=== PATIENT | male | born 2000 | race Caucasian/White ===

== ENCOUNTER 2021-02-12 11:15 | Inpatient (IN) | payer BC, OTHER ==
[2021-02-12] MEDS ORDERED: SODIUM CHLORIDE 0.9% 500 ML 500 ML IV STA (11:32)
[2021-02-12] MEDS ORDERED: ONDANSETRON 4 MG/2 ML VIAL IVP STA (11:32)
[2021-02-12] MEDS ORDERED: SODIUM CHLORIDE 0.9% 1,000 ML IV STA ×2 (11:32)
[2021-02-12 12:01] LABS: ALT 41 U/L (4-49); AST 32 U/L (17-59); African American GFR (CKD) >90 (>60 ml/min/1.73 sqM); Albumin 4.4 g/dL (3.5-5.0); Alkaline Phosphatase 88 U/L (38-126); Anion Gap 11 mmol/L; Blood Urea Nitrogen 16 mg/dL (9-20); Calcium 9.9 mg/dL (8.4-10.2); Carbon Dioxide 23 mmol/L (22-30); Chloride 100 mmol/L (98-107); Glucose 110 mg/dL (74-99); Lipase 34 U/L (23-300); Non-African American GFR(CKD) >90 (>60 ml/min/1.73 sqM); Potassium 4.2 mmol/L (3.5-5.1); Sodium 134 mmol/L (137-145); Total Protein 7.1 g/dL (6.3-8.2)
--- NOTE | 2021-02-12 12:15 | ED ---
General Adult HPI - General Chief complaint: Nausea/Vomiting/Diarrhea Stated complaint: NVD Time Seen by Provider: 02/12/21 11:25 Source: patient, RN notes reviewed Mode of arrival: ambulatory Limitations: no limitations - History of Present Illness Initial comments: This a 20-year-old male presents emergency Department with chief complaint of abdominal pain, nausea vomiting diarrhea. Patient's states he has had issues with C. diff over the last 4-5 months. Patient was treated by [facility]. Patient states he has increased symptoms last 3 days with several episodes of diarrhea he states it's watery, slightly red tinged. Patient was treated in the past with vancomycin has taken a few doses of Flagyl. He states he feels weak, dehydrated. Patient mother has discussed the case with GI. He does not have a local follow-up. - Related Data Home Medications Medication Instructions Recorded Confirmed No Known Home Medications 02/12/21 02/12/21 Allergies Allergy/AdvReac Type Severity Reaction Status Date / Time No Known Allergies Allergy Verified 02/12/21 12:23 Review of Systems ROS Statement: Those systems with pertinent positive or pertinent negative responses have been documented in the HPI. ROS Other: All systems not noted in ROS Statement are negative. Past Medical History Additional Past Medical History / Comment(s): c-diff History of Any Multi-Drug Resistant Organisms: None Reported Past Surgical History: Appendectomy Past Psychological History: No Psychological Hx Reported Smoking Status: Current every day smoker Past Alcohol Use History: None Reported Past Drug Use History: None Reported General Exam Limitations: no limitations General appearance: alert, in no apparent distress Head exam: Present: atraumatic, normocephalic, normal inspection Neck exam: Present: normal inspection. Absent: tenderness, meningismus, lymphadenopathy Respiratory exam: Present: normal lung sounds bilaterally. Absent: respiratory distress, wheezes, rales, rhonchi, stridor Cardiovascular Exam: Present: normal rhythm, tachycardia, normal heart sounds. Absent: systolic murmur, diastolic murmur, rubs, gallop, clicks GI/Abdominal exam: Present: soft, tenderness, normal bowel sounds. Absent: distended, guarding, rebound, rigid Back exam: Absent: CVA tenderness (R), CVA tenderness (L) Neurological exam: Present: alert Skin exam: Present: warm, dry, intact, normal color. Absent: rash Course Vital Signs 02/12/21 11:19 Temperature 98.5 F Pulse Rate 115 H Respiratory 18 Rate Blood Pressure 106/64 O2 Sat by Pulse 100 Oximetry Medical Decision Making - Medical Decision Making 20-year-old male presented for recurrent C. diff. Patient was given dehydrated, having moderate left-sided abdominal pain. Patient be admitted for consult infectious disease, GI. Case discussed with Dr. Parker. - Lab Data Result diagrams: 02/12/21 11:38 02/12/21 11:38 Lab Results 02/12/21 02/12/21 Range/Units 11:38 11:38 WBC 6.1 (3.8-10.6) k/uL RBC 5.11 (4.30-5.90) m/uL Hgb 15.6 (13.0-17.5) gm/dL Hct 45.9 (39.0-53.0) % MCV 89.8 (80.0-100.0) fL MCH 30.5 (25.0-35.0) pg MCHC 34.0 (31.0-37.0) g/dL RDW 12.3 (11.5-15.5) % Plt Count 200 (150-450) k/uL MPV 7.4 Sodium 134 L (137-145) mmol/L Potassium 4.2 (3.5-5.1) mmol/L Chloride 100 (98-107) mmol/L Carbon Dioxide 23 (22-30) mmol/L Anion Gap 11 mmol/L BUN 16 (9-20) mg/dL Creatinine 1.06 (0.66-1.25) mg/dL Est GFR (CKD-EPI)AfAm >90 (>60 ml/min/1.73 sqM) Est GFR (CKD-EPI)NonAf >90 (>60 ml/min/1.73 sqM) Glucose 110 H (74-99) mg/dL Calcium 9.9 (8.4-10.2) mg/dL Total Bilirubin 1.0 (0.2-1.3) mg/dL AST 32 (17-59) U/L ALT 41 (4-49) U/L Alkaline Phosphatase 88 (38-126) U/L Total Protein 7.1 (6.3-8.2) g/dL Albumin 4.4 (3.5-5.0) g/dL Lipase 34 (23-300) U/L Disposition Clinical Impression: Recurrent Clostridium difficile diarrhea, Dehydration, Abdominal pain Disposition: ADMITTED IP TO THIS HOSP Condition: Fair Referrals: RYAN JEREZ MD [Primary Care Provider] - 1-2 days
[2021-02-12 12:25] LABS: HCT 45.9 % (39.0-53.0); HGB 15.6 gm/dL (13.0-17.5); MCH 30.5 pg (25.0-35.0); MCV 89.8 fL (80.0-100.0); Mean Platelet Volume 7.4; Platelet Count 200 k/uL (150-450); RBC 5.11 m/uL (4.30-5.90); RDW 12.3 % (11.5-15.5); WBC 6.1 k/uL (3.8-10.6)
[2021-02-12 12:43] LABS: Band Neutrophils % 24 %; Lymphocytes # (M) 1.22 k/uL (1.0-4.8); Monocytes # (M) 0.73 k/uL (0-1.0); Neutrophils % (M) 45 %; Nucleated Red Blood Cells 0 /100 WBC (0-0); Total Cells Counted 200
[2021-02-12] MEDS ORDERED: METOCLOPRAMIDE 5 MG/ML 2 ML VIAL IVP STA (12:43)
[2021-02-12] MEDS ORDERED: HYDROmorphone 0.5 MG/0.5 ML SYRINGE IVP STA (12:43)
[2021-02-12 12:44] LABS: Anisocytosis (M) Present; Toxic Granulation Present
[2021-02-12 12:45] LABS: Poikilocytosis (M) Present
[2021-02-12] MEDS ORDERED: NALOXONE 0.4 MG/ML 1 ML VIAL IV PRN (12:46)
[2021-02-12] MEDS ORDERED: HYDROmorphone 0.5 MG/0.5 ML SYRINGE IVP PRN (12:46)
[2021-02-12] MEDS ORDERED: ONDANSETRON 4 MG/2 ML VIAL IVP PRN (12:46)
[2021-02-12] MEDS ORDERED: ACETAMINOPHEN TAB 325 MG TAB PO PRN (12:46)
[2021-02-12 13:28] LABS: Appearance,Urine Clear (Clear); Bilirubin,Urine Negative (Negative); Blood,Urine Negative (Negative); Color,Urine Yellow; Glucose,Urine (UA) Negative (Negative); Ketones,Urine 1+ (Negative); Leukocyte Esterase,Urine Small (Negative); Mucus,Urine Few /hpf; Nitrite,Urine Negative (Negative); Protein,Urine Trace (Negative); RBC,Urine 2 /hpf (0-5); Specific Gravity,Urine 1.026 (1.001-1.035); Urobilinogen,Urine <2.0 mg/dL (<2.0); WBC,Urine 1 /hpf (0-5)
[2021-02-12] MEDS ORDERED: HYDROcodone/APAP 5-325MG 1 EACH TAB PO PRN (15:17)
[2021-02-12] MEDS: SODIUM CHLORIDE 0.9% 1,000 ML IV SCH ×2 (17:02→21:46)
[2021-02-12] MEDS ORDERED: ALPRAZolam 0.25 MG TAB PO PRN (19:05)
--- NOTE | 2021-02-12 20:01 | HP ---
HISTORY AND PHYSICAL DATE OF SERVICE: 02/12/2021 CHIEF COMPLAINT: Abdominal pain, diarrhea. HISTORY OF PRESENT ILLNESS: This 20-year-old gentleman with a past medical history of appendectomy, otherwise no significant medical problems had episode of Clostridium difficile about 5 months ago. The patient is admitted in [facility] in [place]. The patient apparently had abdominal pain, was diagnosed with appendicitis, treated medically with IV antibiotics. Subsequently, patient ended up having appendectomy. Patient had C diff colitis and treated with medication. Patient improved significantly. Now after a period of five months, the patient having episodes of diarrhea and as well as significant abdominal pain. Patient admitted for further evaluation and treatment. The patient found to have a C difficile positive in the stool. There is no history of fever, rigors or chills. No history of headache, loss of consciousness, seizures at this time. PAST MEDICAL HISTORY: History of C diff, history of appendectomy. MEDICATIONS: None. ALLERGIES: None. FAMILY HISTORY: No history of heart disease or strokes in the family. SOCIAL HISTORY: History of smoking. No history of alcohol. No history of substance abuse. REVIEW OF SYSTEMS: ENT: No diminished vision. No diminished hearing. CARDIOVASCULAR: No angina. RESPIRATIONS: No cough. No hemoptysis. GI: As mentioned earlier. : No dysuria. NERVOUS SYSTEM: No numbness, weakness. ALLERGY/IMMUNOLOGY: No asthma or hayfever. MUSCULOSKELETAL as mentioned earlier. HEMATOLOGY/ONCOLOGY: No history of anemia. ENDOCRINE: No history of diabetes or hypothyroidism. CONSTITUTIONAL: As mentioned earlier. DERMATOLOGY: Negative. RHEUMATOLOGY: Negative. PSYCHIATRY: As mentioned earlier. PHYSICAL EXAMINATION: Alert and oriented x3. Pulse is 86, blood pressure 102/58, respirations 16, temperature 98.8, pulse ox 100 percent on room air. HEENT: Conjunctivae normal. NECK: No JVD. CARDIOVASCULAR: S1, S2 muffled. RESPIRATORY: Breath sounds diminished in the bases. No rhonchi. No crackles. ABDOMEN: Soft, mild diffuse tenderness present. No guarding. No rigidity. No mass palpable. LEGS: No edema. No swelling. NERVOUS SYSTEM: Higher functions as mentioned earlier. Moves all 4 limbs. No focal motor or sensory deficits. LYMPHATICS: No lymph nodes palpable in the neck, axilla or groin. SKIN: No ulcer, rash or bleeding. JOINTS: No active deforming arthropathy. LABS: CBC within normal limits. Sodium 134. ASSESSMENT: 1. Acute abdominal pain and diarrhea possibly acute C difficile colitis. 2. Recurrent C difficile colitis. 3. History of Clostridium difficile colitis. 4. History of appendectomy. 5. Hyponatremia. 6. Elevated random glucose. RECOMMENDATIONS AND DISCUSSION: This 20-year-old gentleman who presented with multiple complex medical issues, we will monitor the patient closely, continue the current medications, management and symptomatic treatment. We will initiate p.o. vancomycin. Otherwise, I would also recommend Infectious Disease evaluation and Gastroenterology evaluation. I would also recommend a CT scan of the abdomen to complete the workup. Otherwise, the prognosis guarded. Further recommendations to follow. Discussed with the patient. See orders for details. Discussed with staff. JENNIE / JOHN: [id number] /
[2021-02-12] MEDS: VANCOMYCIN 125 MG CAPSULE PO SCH ×2 (21:45→22:58)
[2021-02-12] MEDS: IOPAMIDOL CONTRAST (ORAL USE) VIAL PO PRN ×2 (22:00→22:57)
--- NOTE | 2021-02-12 23:21 | P.CONS ---
History of Present Illness - Reason for Consult Consult date: 02/12/21 c diff colitis Requesting physician: Redd Parker - Chief Complaint diarrhea x 3 days - History of Present Illness Patient is a 20-year male with a past medical history significant for appendicitis/as well as appendectomy developing C. difficile colitis around the time of appendectomy 5 months ago for the patient was treated and admitted to hospital with Any patient has completed his oral vancomycin and was doing well however 3 days ago the patient was having diarrhea explosive with 10-12 episodes per day watery no blood or mucus in the stool some crampy abdominal pain and nausea but no vomiting with the symptoms the patient presented back to the hospital on arrival to the ER patient was afebrile he did have a normal white count patient did have stool for C. difficile back positive stool culture has been requested patient was started on oral vancomycin infectious he was consulted for further management of antibiotic therapy. Review of Systems Positive point has been mentioned in HPI rest of the systems are negative Past Medical History Additional Past Medical History / Comment(s): c-diff History of Any Multi-Drug Resistant Organisms: C-DIFF Year Discovered:: 02/12/21 MDRO Source:: STOOL Past Surgical History: Appendectomy Past Psychological History: No Psychological Hx Reported Smoking Status: Current every day smoker Past Alcohol Use History: None Reported Past Drug Use History: None Reported Medications and Allergies Home Medications Medication Instructions Recorded Confirmed Type No Known Home Medications 02/12/21 02/12/21 History Allergies Allergy/AdvReac Type Severity Reaction Status Date / Time No Known Allergies Allergy Verified 02/12/21 12:23 Physical Exam Vitals: Vital Signs Temp Pulse Pulse Resp BP BP Pulse Ox 02/12/21 20:15 98.6 F 94 18 127/58 99 02/12/21 14:00 98.8 F 86 16 102/58 100 02/12/21 13:43 99 17 105/60 98 02/12/21 12:53 97 16 104/49 99 02/12/21 11:19 98.5 F 115 H 18 106/64 100 Intake and Output 02/12/21 02/12/21 02/13/21 14:59 22:59 06:59 Other: # Voids 1 # Bowel Movements 1 Weight 58.967 kg 58.967 kg GENERAL DESCRIPTION: Middle-aged male lying in bed, no distress. No tachypnea or accessory muscle of respiration use. HEENT: Shows Pallor , no scleral icterus. Oral mucous membrane is dry. NECK: Trachea central, no thyromegaly. LUNGS: Unlabored breathing. Clear to auscultation anteriorly. No wheeze or crackle. HEART: S1, S2, regular rate and rhythm. ABDOMEN: Soft, no tenderness , guarding or rigidity EXTREMITIES: No edema of feet. SKIN: No rash, no masses palpable. NEUROLOGICAL: The patient is awake, alert, oriented x3, mood and affect normal. Results CBC & Chem 7: 02/12/21 11:38 02/12/21 11:38 Labs: Abnormal Lab Results - Last 24 Hours (Table) 02/12/21 02/12/21 02/12/21 Range/Units 11:38 11:38 11:38 Sodium 134 L (137-145) mmol/L Glucose 110 H (74-99) mg/dL Urine Protein Trace H (Negative) Urine Ketones 1+ H (Negative) Ur Leukocyte Esterase Small H (Negative) Urine Mucus Few H (None) /hpf C. difficile (EIA) Intrp Positive A (Negative) Microbiology - Last 24 Hours (Table) 02/12/21 11:38 Stool Culture - Preliminary Stool Assessment and Plan Assessment: patient presenting to the hospital with diarrhea 3 days duration in this patient who did have a history of C. difficile colitis possible recurrent C. difficile colitis this being his second episode and patient did not recall any antibiotic exposure between his first and second episode of diarrhea/C. difficile colitis (1) C. difficile colitis Current Visit: Yes Status: Acute Code(s): A04.72 - ENTEROCOLITIS D/T CL OSTRIDIUM DIFFICILE, NOT SPCF RECUR SNOMED Code(s): 705889918 Plan: 1-vancomycin 250 mg p.o. every 6 hours 2-gentle IV fluid 3-avoid antimotility agents We will follow on clinical condition and cultures to further adjust medication if needed Thank you for this consultation we will follow the patient along with you Time with Patient: Greater than 30
--- NOTE | 2021-02-13 00:08 | CT ---
EXAMINATION TYPE: CT abdomen pelvis wo con DATE OF EXAM: 02/12/2021 COMPARISON: None HISTORY: pain CT DLP: 366 mGycm Automated exposure control for dose reduction was used. Exam performed with oral contrast only. Lung bases are clear. There is no pleural effusion. Heart size is normal. There is no pericardial eff usion. Liver spleen stomach pancreas appear intact. The bile ducts are nondilated. Gallbladder appear s normal. There is oral contrast in the stomach and small bowel and also the right colon and transver se colon. There is no evidence of a bowel obstruction. There are surgical clips in the right lower qu adrant that could be from appendectomy. There is no adrenal mass. Kidneys have normal size. There is no hydronephrosis. Ureters are not dilat ed. There is no retroperitoneal adenopathy. Bladder distends smoothly. There is no inguinal hernia. T here is no free fluid in the pelvis. There is no evidence of mesenteric edema. There is no ascites or free air. There is no sign of a pravin l obstruction. The terminal ileum appears within normal limits. There is mild wall thickening of the lower rectosigmoid colon. The lumbar vertebra have normal alignment. Posterior elements are intact. There is no compression fra cture. Disc spaces are normal. The bony pelvis appears intact. The hip joints are intact. There is no hip dysplasia. IMPRESSION: There is some mild wall thickening of the lower rectosigmoid colon that could be mild colitis. Normal small bowel pattern.
[2021-02-13 03:23] LABS: Appearance,Urine Clear (Clear); Bilirubin,Urine Negative (Negative); Blood,Urine Negative (Negative); Color,Urine Colorless; Glucose,Urine (UA) Negative (Negative); Ketones,Urine Trace (Negative); Leukocyte Esterase,Urine Negative (Negative); Nitrite,Urine Negative (Negative); Protein,Urine Negative (Negative); Specific Gravity,Urine 1.002 (1.001-1.035); Urobilinogen,Urine <2.0 mg/dL (<2.0)
[2021-02-13 03:34] LABS: Amphetamine Screen,Urine Not Detected (NotDetected); Barbiturate Screen,Urine Not Detected (NotDetected); Benzodiazepines Screen,Urine Not Detected (NotDetected); Cocaine Screen,Urine Not Detected (NotDetected); Methadone Screen, Urine Not Detected (NotDetected); Opiate Screen,Urine Not Detected (NotDetected); Oxycodone Screen, Urine Not Detected (NotDetected); Phencyclidine Screen,Urine Not Detected (NotDetected); Tricyclic Antidepressant,Urine Not Detected (NotDetected); Urn Cannabinoid Scrn Not Detected (NotDetected)
[2021-02-13 03:59] VITALS: RESP 16
[2021-02-13] MEDS: VANCOMYCIN 125 MG CAPSULE PO SCH ×5 (08:26→22:58)
[2021-02-13 11:33] LABS: Anion Gap 8.2 mmol/L (4.00-12.00); BUN/Creat Ratio 14.44 Ratio (12.00-20.00); Carbon Dioxide 25.8 mmol/L (21.6-31.8); Non-African American GFR(CKD) 121.7 (60.0-200.0); Potassium 3.7 mmol/L (3.5-5.5)
[2021-02-13 11:38] LABS: HCT 37.3 % (39.6-50.0); HGB 12.8 g/dL (13.0-17.0); MCH 31.1 pg (27.0-32.0); MCHC 34.3 g/dL (32.0-37.0); MCV 90.5 fL (80.0-97.0); Mean Platelet Volume 10.7 fL (9.5-12.2); Platelet Count 183 X 10*3/uL (140-440); RBC 4.12 X 10*6/uL (4.40-5.60); RDW 11.7 % (11.5-14.5)
[2021-02-13 12:40] LABS: Basophils # (A) 0.02 X 10*3/uL (0.00-0.10); Basophils % (A) 0.4 %; Eosinophils # (A) 0.12 X 10*3/uL (0.04-0.35); Eosinophils % (A) 2.6 %; Lymphocytes # (A) 1.29 X 10*3/uL (0.90-5.00); Lymphocytes % (A) 27.4 %; Monocytes # (A) 0.85 X 10*3/uL (0.20-1.00); Monocytes % (A) 18.1 %; Neutrophils # (A) 2.41 X 10*3/uL (1.80-7.70); Neutrophils % (A) 51.3 %
--- NOTE | 2021-02-13 16:20 | P.CONS ---
History of Present Illness - Reason for Consult Consult date: 02/13/21 diarrhea Requesting physician: Redd Parker - Chief Complaint Diarrhea, abdominal pain - History of Present Illness This a 20-year-old white male who presented to emergency department with complaints of diarrhea and abdominal pain that started 3 days ago. He states he was having greater than 10 episodes a day. States they were nonbloody, non- mucousy. States he did have a fever at home and one episode of vomiting the first day. The patient was hospitalized a month ago and [place] He was diagnosed with C. diff on 01/02/2021 and states he was treated with vancomycin. He states his symptoms had resolved up until 3 days ago. He also states he had a colonoscopy 12/24/2020 while he was in [place] for complaints of the abdominal pain and diarrhea. Colonoscopy report reviewed from patient's phone showing normal colonoscopy, biopsy results were negative for colitis. CT of the abdomen and pelvis show some wall thickening of the lower recto sigmoid colon could be mild colitis. Normal small bowel. He was tested for C. diff on admission and was found to be positive. Infectious disease was consulted and he was started on vancomycin. Today the patient states his abdominal pain has improved, he denies any nausea or vomiting. His diarrhea has also improved and states he only had 2 episodes of diarrhea today. He has been afebrile this admission. Admitting labs WBC 6.1, hemoglobin 15.6, hematocrit 45.9, platelet count 200,000, total bilirubin 1.0, alkaline phosphatase 88, AST 32, ALT 41 Review of Systems REVIEW OF SYSTEMS: CARDIOPULMONARY: No chest pain or shortness of breath. Gastrointestinal: Positive abdominal pain. No nausea or vomiting. No coffee-ground emesis. No rectal bleeding, or melena. Multiple episodes of daily diarrhea. GENITOURINARY: No dysuria or hematuria. MUSCULOSKELETAL: Reports normal range of motion., Joint pain. SKIN: No rashes. No jaundice. ENDOCRINE: No chills, fevers. No excessive weight gain or loss. No polydipsia or polyuria. PSYCHIATRIC: Unremarkable. NEUROLOGY: No change in mental status. Denies dizziness, headache. ENT: Vision unremarkable. CONSTITUTIONAL: No recent weight loss. No fever, chills, night sweats. Past Medical History Additional Past Medical History / Comment(s): c-diff History of Any Multi-Drug Resistant Organisms: C-DIFF Year Discovered:: 02/12/21 MDRO Source:: STOOL Past Surgical History: Appendectomy Past Psychological History: No Psychological Hx Reported Smoking Status: Current every day smoker Past Alcohol Use History: None Reported Past Drug Use History: None Reported Medications and Allergies Home Medications Medication Instructions Recorded Confirmed Type No Known Home Medications 02/12/21 02/12/21 History Allergies Allergy/AdvReac Type Severity Reaction Status Date / Time No Known Allergies Allergy Verified 02/12/21 12:23 Physical Exam Vitals: Vital Signs Temp Pulse Pulse Resp BP BP Pulse Ox 02/13/21 08:00 97.9 F 70 16 103/64 98 02/13/21 02:40 97.3 F L 70 16 108/53 98 02/12/21 20:15 98.6 F 94 18 127/58 99 02/12/21 20:00 94 18 02/12/21 14:00 98.8 F 86 16 102/58 100 02/12/21 13:43 99 17 105/60 98 02/12/21 12:53 97 16 104/49 99 Intake and Output 02/12/21 02/13/21 02/13/21 22:59 06:59 14:59 Other: Voiding Method Toilet Toilet # Voids 1 2 # Bowel Movements 1 4 Weight 58.967 kg General appearance: The patient is alert, oriented, appears in no acute distress. HET: Head is normocephalic and atraumatic. Conjunctiva pink. Sclera anicteric. Neck: Supple without lymphadenopathy. Trachea midline. Heart: S1 S2. Regular rate and rhythm. Lungs: Clear to auscultation. Abdomen: Soft, nontender, nondistended with bowel sounds. No guarding or rigidity. Skin: No rashes. No jaundice. Extremities: Normal skin color and turgor. No pedal edema. Neurological: No focal deficits. Alert and oriented 3.. Results CBC & Chem 7: 02/13/21 06:53 02/13/21 06:53 Labs: Abnormal Lab Results - Last 24 Hours (Table) 02/12/21 02/12/21 02/12/21 Range/Units 11:38 11:38 11:38 Sodium 134 L (137-145) mmol/L Glucose 110 H (74-99) mg/dL Urine Protein Trace H (Negative) Urine Ketones 1+ H (Negative) Ur Leukocyte Esterase Small H (Negative) Urine Mucus Few H (None) /hpf C. difficile (EIA) Intrp Positive A (Negative) 02/13/21 Range/Units 02:00 Sodium (137-145) mmol/L Glucose (74-99) mg/dL Urine Protein (Negative) Urine Ketones Trace H (Negative) Ur Leukocyte Esterase (Negative) Urine Mucus (None) /hpf C. difficile (EIA) Intrp (Negative) Microbiology - Last 24 Hours (Table) 02/12/21 11:38 Stool Culture - Preliminary Stool CT scan - abdomen: report reviewed (There is some mild wall thickening of the lower rectosigmoid colon that could be mild colitis. Normal small bowel pattern.) Assessment and Plan (1) Recurrent Clostridium difficile diarrhea Narrative/Plan: 20-year-old male who presented to the emergency department with complaints of abdominal pain and diarrhea that began 3 days ago. Patient states he was having greater than 10 episodes of loose stool a day, which he states were nonbloody, non-mucousy. He was diagnosed with C. diff on 02/01/2021 and was treated with vancomycin. At that time he also underwent an appendectomy 01/31/21. Prior to the C. diff and appendectomy the patient states he was having abdominal pain, diarrhea and underwent a colonoscopy on 12/24/2020 while in [place]. Report states normal colon, biopsy results came back as no evidence of colitis. During this admission a stool sample received in was tested for C. difficile which was positive. Infectious disease was consulted, patient is currently on vancomycin. Symptoms are improving. Current Visit: Yes Status: Acute Code(s): A04.71 - ENTEROCOLITIS DUE TO CLOSTRIDIUM DIFFICILE, RECURRENT SNOMED Code(s): 1224669992783 (2) Abdominal pain Current Visit: Yes Status: Acute Code(s): R10.9 - UNSPECIFIED ABDOMINAL PAIN SNOMED Code(s): 74914270 (3) C. difficile colitis Current Visit: Yes Status: Acute Code(s): A04.72 - ENTEROCOLITIS D/T CLOSTRIDIUM DIFFICILE, NOT SPCF RECUR SNOMED Code(s): 640501436 Plan: 1. Diet as tolerated 2. Continue vancomycin as ordered 3. Avoid antidiarrheals 4. No plans on endoscopic evaluation, patient had recent colonoscopy 12/24/2020 which was normal 5. Continue symptomatic and supportive care Thank you for this consultation, we will continue to follow Dr. Walton I agree with the dictator's note, documented as a scribe by Meghan Brich.
[2021-02-13] MEDS: SODIUM CHLORIDE 0.9% 1,000 ML IV SCH (17:13)
--- NOTE | 2021-02-13 22:10 | PN ---
PROGRESS NOTE DATE OF SERVICE: 02/13/2021 This 20-year-old gentleman admitted with recurrent C diff colitis is being closely monitored at this time. Infectious Disease and Gastroenterology is seeing the patient. The CT scan of the abdomen and pelvis showed some mild wall thickening of the lower rectosigmoid colon. No chest pain. No palpitations. Hemoglobin 12.8. Covid [address] Rivera has seen the patient from infectious disease point of view and recommended vancomycin. Gastroenterology also saw the patient, recommended continued followup. No chest pain. No palpitations. No fever. PHYSICAL EXAMINATION: Alert and oriented x3. Pulse is 98, blood pressure 109/60, respirations 16, temperature 98.2, pulse ox 97 percent on room air. HEENT: Conjunctivae normal. Neck: No JVD. Cardiovascular: S1, S2 muffled. Respirations: Breath sounds diminished in the bases. Abdomen: Soft. Nervous System: No focal deficits. LABS: WBC 4.7, hemoglobin 12.8. Other labs are noted. ASSESSMENT: 1. Acute recurrent C difficile colitis. 2. History of previous C difficile colitis. 3. History of appendectomy. 4. Hyponatremia. 5. Elevated random glucose. 6. Mild anemia, normocytic. RECOMMENDATIONS AND DISCUSSION: Recommend to continue current medications, management and symptomatic treatment. Continue with vancomycin. Otherwise closely follow with Infectious Disease. Avoid antimotility agents. Guarded prognosis. Further recommendations to follow. MMODL / IJN: [id number] /
--- NOTE | 2021-02-13 23:26 | PN ---
PROGRESS NOTE DATE OF SERVICE: 02/13/2021 REASON FOR FOLLOW UP: C difficile colitis recurrent. INTERVAL HISTORY: The patient is afebrile. The patient is feeling better. The patient's diarrhea frequency has decreased. No chest pain, shortness of breath or cough. No nausea, vomiting or diarrhea or any worsening diarrhea. PHYSICAL EXAMINATION: Blood pressure 109/66, pulse of 90, temperature 98.3. She is 97% on room air. General description is a young male lying in bed in no distress. Respiratory system: Unlabored breathing, clear to auscultation anteriorly. Heart S1, S2. Regular rate and rhythm. Abdomen: Soft. No tenderness. LABS: Hemoglobin is 12.1, white count 4.70, BUN of 13, creatinine 0.9. DIAGNOSTIC IMPRESSION AND PLAN: Patient admitted to the hospital with C difficile colitis, mild. No evidence of any C diff on the CT. Patient to continue with vancomycin 250 q.6h for another 2 week course and close outpatient followup. Questions and concerns were answered. MMODL / IJN: [id number] /
[2021-02-14] MEDS: SODIUM CHLORIDE 0.9% 1,000 ML IV SCH (05:59)
[2021-02-14 08:39] VITALS: BP 109/58; PULSE 68; TEMP 97.8
[2021-02-14] MEDS: VANCOMYCIN 125 MG CAPSULE PO SCH ×2 (09:14→13:26)
--- NOTE | 2021-02-14 11:16 | P.PN ---
Subjective Progress Note Date: 02/14/21 Principal diagnosis: Diarrhea, C-diff Objective - Vital Signs Vital signs: Vital Signs Temp 97.8 F 02/14/21 08:00 Pulse 68 02/14/21 08:00 Resp 16 02/14/21 08:00 BP 109/58 02/14/21 08:00 Pulse Ox 98 02/14/21 08:00 Intake & Output 02/13/21 02/14/21 02/14/21 18:59 06:59 18:59 Other: Voiding Method Toilet Toilet # Voids 3 3 # Bowel Movements 3 - Exam General appearance: The patient is alert, oriented, appears in no acute distress. HET: Head is normocephalic and atraumatic. Conjunctiva pink. Sclera anicteric. Neck: Supple without lymphadenopathy. Abdomen: Soft, nontender, nondistended with bowel sounds. No guarding or rigidity. Extremities: Normal skin color and turgor. No pedal edema Skin: No rashes, no jaundice Neurological: No focal deficits. Alert and oriented 3. - Labs CBC & Chem 7: 02/13/21 06:53 02/13/21 06:53 Labs: Abnormal Lab Results - Last 24 Hours (Table) 02/13/21 Range/Units 06:53 RBC 4.12 L (4.40-5.60) X 10*6/uL Hgb 12.8 L (13.0-17.0) g/dL Hct 37.3 L (39.6-50.0) % Assessment and Plan (1) Recurrent Clostridium difficile diarrhea Narrative/Plan: 20-year-old male who presented to the emergency department with complaints of abdominal pain and diarrhea that began 3 days ago. Patient states he was having greater than 10 episodes of loose stool a day, which he states were nonbloody, non-mucousy. He was diagnosed with C. diff on 02/01/2021 and was treated with vancomycin. At that time he also underwent an appendectomy 01/31/21. Prior to the C. diff and appendectomy the patient states he was having abdominal pain, diarrhea and underwent a colonoscopy on 12/24/2020 while in [place]. Report states normal colon, biopsy results came back as no evidence of colitis. During this admission a stool sample received in was tested for C. difficile which was positive. Infectious disease was consulted, patient is currently on vancomycin. Symptoms are improving. Current Visit: Yes Status: Acute Code(s): A04.71 - ENTEROCOLITIS DUE TO CLOSTRIDIUM DIFFICILE, RECURRENT SNOMED Code(s): 3359473208235 (2) Abdominal pain Current Visit: Yes Status: Acute Code(s): R10.9 - UNSPECIFIED ABDOMINAL PAIN SNOMED Code(s): 37677087 (3) C. difficile colitis Current Visit: Yes Status: Acute Code(s): A04.72 - ENTEROCOLITIS D/T CLOSTRIDIUM DIFFICILE, NOT SPCF RECUR SNOMED Code(s): 533949387 Plan: 1. Diet as tolerated 2. Continue vancomycin as ordered 3. Avoid antidiarrheals 4. No plans on endoscopic evaluation, patient had recent colonoscopy 12/24/2020 which was normal 5. Continue symptomatic and supportive care Thank you for this consultation, patient may be discharged from a gastroenterology standpoint. Dr. Walton I agree with the dictator's note, documented as a scribe by Meghan Birch.
--- NOTE | 2021-02-14 11:53 | PN ---
PROGRESS NOTE DATE OF SERVICE: 02/14/2021 REASON FOR FOLLOW UP: C difficile colitis. INTERVAL HISTORY: Patient is currently afebrile. Patient is breathing comfortably. The patient denies having any chest pain. No shortness of breath or cough. Abdominal pain has improved and diarrhea has decreased intensity. PHYSICAL EXAMINATION: Blood pressure 109/58 with a pulse of 72, temperature 97.8. He is 98% on room air. General description is a middle-aged male up in the room in no distress. Respiratory system: Unlabored breathing. Clear to auscultation anteriorly. Heart S1, S2. Regular rate and rhythm. Abdomen: Soft, no tenderness. LABS: No new labs have been obtained today. DIAGNOSTIC IMPRESSION AND PLAN: Patient with C difficile colitis in this patient who has shown clinical improvement. Plan is for 2 week course of oral vancomycin in outpatient setting and advised to increase his probiotic and yogurt intake and close outpatient followup. MMODL / IJN: [id number] /
--- NOTE | 2021-02-14 12:32 | P.DS ---
Providers Date of admission: 02/12/21 12:49 Attending physician: Redd Parker Consults: 02/12/21 12:47 Consult Physician Urgent Consulting Provider: Alexandra Rivera Consult Reason/Comments: C-Diff Do you want consulting provider notified?: Yes Consult Physician Urgent Consulting Provider: Kam Walton Consult Reason/Comments: C.Diff Do you want consulting provider notified?: Yes Primary care physician: RYAN JEREZ MD Hospital Course: 20-year-old that came in for the second episode of C. diff colitis/apparently last time he didn't complete his antibiotic therapy which he believes is the atiya son for recurrence. Patient was given vancomycin patient had only 1 episode of diarrhea today. Patient will be discharged today on vancomycin orally for 14 days patient has a lot of questions regarding fecal transplant and indication which I discussed with the patient and explained to him and he is not a candidate for fecal transplant yet, since it's only the second episode. Patient doesn't have any significant abdominal pain at this time. Patient is requesting Questran on as-needed basis for diarrhea which will be prescribed to the patient. PHYSICAL EXAMINATION: GENERAL: The patient is alert and oriented x3, not in any acute distress. Well developed, well nourished. HEENT: Pupils are round and equally reacting to light. EOMI. No scleral icterus. No conjunctival pallor. Normocephalic, atraumatic. No pharyngeal erythema. No thyromegaly. CARDIOVASCULAR: S1 and S2 present. No murmurs, rubs, or gallops. PULMONARY: Chest is clear to auscultation, no wheezing or crackles. ABDOMEN: Soft, nontender, nondistended, normoactive bowel sounds. No palpable organomegaly. MUSCULOSKELETAL: No joint swelling or deformity. EXTREMITIES: No cyanosis, clubbing, or pedal edema. NEUROLOGICAL: Gross neurological examination did not reveal any focal deficits. SKIN: No rashes. -Recurrent C. diff colitis -Dehydration and hypovolemic hyponatremia improved with IV fluids Patient Condition at Discharge: Fair Plan - Discharge Summary Discharge Rx Participant: No New Discharge Prescriptions: New Cholestyramine (with Sugar) [Questran] 4 gm PO QID PRN #30 packet PRN Reason: Diarrhea Vancomycin 250 mg PO QID #56 capsule Discharge Medication List Cholestyramine (with Sugar) [Questran] 4 gm PO QID PRN #30 packet 02/14/21 [Rx] Vancomycin 250 mg PO QID #56 capsule 02/14/21 [Rx] Follow up Appointment(s)/Referral(s): RYAN JEREZ MD [Primary Care Provider] - 02/17/21 10:30 am (Patint MUST call office before appointment to go over Patient information update ) Marita Baires MD [STAFF PHYSICIAN] - 03/13/21 10:30 am Patient Instructions/Handouts: C Diff (Clostridium Difficile) Infection (DC) Discharge Disposition: HOME SELF-CARE
== END 2021-02-14 14:25 | disposition home or self-care (01) | DRG 372 ==
LOC: EC 11:15 → 4SSUR 12:49
PROVIDERS: ADMIT Hospitalist; ATTEND Hospitalist
DX: A04.71 Enterocolitis due to Clostridium difficile, recurrent (principal); E87.1 Hypo-osmolality and hyponatremia; D64.9 Anemia, unspecified; E86.1 Hypovolemia; E86.0 Dehydration; F17.210 Nicotine dependence, cigarettes, uncomplicated; Z90.49 Acquired absence of other specified parts of digestive tract; Z20.822 Contact with and (suspected) exposure to COVID-19; Z86.19 Personal history of other infectious and parasitic diseases
CPT/HCPCS: 36415; 74176; 80048; 80053; 80306; 81001; 81003; 83690; 85025; 87045; 87046; 87324; 87635; 96361; 96374; 96375; 99285